=== PATIENT | female | born 1950 | race Caucasian/White ===

== ENCOUNTER 2017-11-10 10:06 | Day surgery (SDC) | payer OTHER, MEDICAID ==
[~2017-11-10 10:06] MED LIST: CEFAZOLIN 2 GM/50 ML (PMX) 50 ML IVPB
[2017-11-10] MEDS: SOD CHLORIDE 0.9% 1,000 ML IV (10:55)
[2017-11-10] MEDS ORDERED: MIDAZOLAM 1 MG/ML 2 ML INJ (11:23)
[2017-11-10] MEDS ORDERED: CEFAZOLIN 1 GM INJ (11:23)
[2017-11-10] MEDS ORDERED: PROPOFOL 20 ML (11:23)
[2017-11-10] MEDS ORDERED: FENTAnyl 50 MCG/ML VIAL (11:23)
[2017-11-10] MEDS ORDERED: HYDROmorphONE 1 MG/5 ML IV SYRINGE IV ×3 (11:30)
[2017-11-10] MEDS ORDERED: OXYCODONE/ACETAMINOPHEN (5/325) TAB PO (11:30)
[2017-11-10] MEDS ORDERED: hydrALAzine 20 MG INJ IV (11:30)
[2017-11-10] MEDS ORDERED: ONDANSETRON 4 MG INJ IV ×2 (11:30→14:00)
[2017-11-10] MEDS ORDERED: LABETALOL HCL 20MG INJ IV (11:30)
[2017-11-10] MEDS ORDERED: FENTAnyl 50 MCG/ML VIAL IV ×3 (11:30)
[2017-11-10] MEDS ORDERED: DIPHENHYDRAMINE 50 MG INJ IV (11:30)
[2017-11-10] MEDS ORDERED: MEPERIDINE 25 MG INJ IV (11:30)
[2017-11-10] MEDS ORDERED: EPHEDrine SULFATE 50 MG/5 ML SYG IV (11:30)
[2017-11-10] MEDS ORDERED: METOCLOPRAMIDE 10 MG INJ IV (11:30)
[2017-11-10] MEDS: LIDOCAINE 1%/EPI 30 ML INJ (12:45)
[2017-11-10] MEDS: BUPIVACAINE 0.25% (MPF) 30 ML INJ (13:29)
[2017-11-10] MEDS ORDERED: KETOROLAC 30 MG INJ IV (14:00)
[2017-11-10] MEDS ORDERED: IBUPROFEN 600 MG TAB PO (14:00)
== END 2017-11-10 15:08 | disposition home or self-care (01) ==
LOC: SDS 10:06
DX: D17.0 Benign lipomatous neoplasm of skin and subcutaneous tissue of head, face and neck (principal); L72.0 Epidermal cyst; E78.00 Pure hypercholesterolemia, unspecified
CPT/HCPCS: 11402; 88307